=== PATIENT | male | born 1995 | race Caucasian/White ===

== ENCOUNTER → 2017-10-16 | Outpatient (CLI) | payer MEDICARE, MEDICAID ==
[~2017-10-16] MED LIST: GASTROGRAFIN SOLUTION 30ML (Q9963) As Ordered ONE; ISOVUE-370 76% 100ML VIAL (Q9967) As Ordered ONE
--- NOTE | 2017-10-16 14:49 | REP ---
Clinical: Right lower quadrant abdominal pain. Technique: Axial contrast enhanced images from the lung bases to the pubic symphysis using oral (per protocol) and 100 ml Isovue 370 intravenous contrast material with coronal and sagittal re-formations. Sequences include metallic artifact reduction algorithm. Findings: Line Lung bases are clear. Visualized heart and pericardium normal. Liver, spleen, pancreas, gallbladder, bilateral adrenal glands and kidneys are normal. The enteric system is without obstruction or acute inflammatory process. Normal terminal ileum, cecum, and appendix in the right lower quadrant. Pelvis demonstrates normal bladder and age appropriate prostate/seminal vesicles. No ascites. No obvious adenopathy. No free air. Vasculature appears normal. The patient is status post Clements rods with moderate dextroconvex scoliosis. Impression: No acute abdominopelvic pathology appreciated. Normal right lower quadrant including appendix. Signed by Darin Herrmann MD 10/16/2017 02:40 P
== END ==
LOC: M RAD 12:42
PROVIDERS: ATTEND Physician Assistant
DX: R10.813 Right lower quadrant abdominal tenderness (principal)
CPT/HCPCS: 74177; Q9963; Q9967